=== PATIENT | female | born 1940 | race Caucasian/White ===

== ENCOUNTER → 2016-08-11 | Outpatient (CLI) | payer MEDICARE | END | disposition home or self-care (01) | LOC: PCVCIMAG 11:34 | PROVIDERS: ATTEND Internal Medicine Cardiovascular Disease | DX: R07.9 Chest pain, unspecified (principal); E11.9 Type 2 diabetes mellitus without complications; I10 Essential (primary) hypertension; I07.1 Rheumatic tricuspid insufficiency | CPT/HCPCS: 93306 ==

== ENCOUNTER → 2016-08-12 | Outpatient (CLI) | payer MEDICARE | END | disposition home or self-care (01) | LOC: PCVCCLINIC 15:20 | PROVIDERS: ATTEND Internal Medicine Cardiovascular Disease | DX: E11.9 Type 2 diabetes mellitus without complications (principal); I10 Essential (primary) hypertension; E78.00 Pure hypercholesterolemia, unspecified; R06.09 Other forms of dyspnea; R07.9 Chest pain, unspecified | CPT/HCPCS: G0463 ==

== ENCOUNTER → 2016-09-15 | Outpatient (CLI) | payer MEDICARE | END | disposition home or self-care (01) | LOC: PCVCCLINIC 11:46 | PROVIDERS: ATTEND Internal Medicine Cardiovascular Disease | DX: I10 Essential (primary) hypertension (principal); E78.00 Pure hypercholesterolemia, unspecified; E11.9 Type 2 diabetes mellitus without complications | CPT/HCPCS: 93005; G0463 ==

== ENCOUNTER → 2018-10-21 | Outpatient (CLI) | payer MEDICARE, OTHER ==
--- NOTE | 2018-10-21 14:28 | PCVCIMAG ---
APPROVED REPORT Study performed: 10/21/2018 13:27:41 EXAM: Comprehensive 2D, Doppler, and color-flow Echocardiogram Patient Location: Echo lab Room #: 2Status: routine BSA: 1.69 HR: 66 bpmBP: 118/54 mmHg Rhythm: NSR Other Information Study Quality: Good Risk Factors: Cardiac Risk Factors: HTN, Hyperlipidemia, DM Indications Diabetes CAD Hypertension/HDD 2D Dimensions IVSd: 8.33 (7-11mm)LVOT Diam: 17.77 (18-24mm) LVDd: 46.30 mm PWd: 8.25 (7-11mm)Ascending Ao: 24.80 (22-36mm) LVDs: 25.23 (25-40mm) Left Atrium: 36.88 (27-40mm) Aortic Root: 19.26 mm LV Single Plane 4CH: 61.78 % LV Single Plane 2CH: 64.75 % Biplane EF: 63.2 % Volumes Left Atrial Volume (Systole) Single Plane 4CH: 46.40 mLSingle Plane 2CH: 35.60 mL Biplane LA Volume: 43.00 mLLA ESV Index: 25.00 mL/m2 Aortic Valve AoV Peak Victor M.: 1.83 m/s AO Peak Gr.: 13.36 mmHgLVOT Max P.22 mmHg LVOT Max V: 1.14 m/s PADDY Vmax: 1.55 cm2 Mitral Valve E/A Ratio: 1.6 MV Decel. Time: 215.40 ms MV E Max Victor M.: 0.97 m/s MV A Victor M.: 0.62 m/s TDI E/Lateral E': 10.78E/Medial E': 13.86 Medial E' Victor M.: 0.07 m/s Lateral E' Victor M.: 0.09 m/s Pulmonary Valve PV Peak Victor M.: 0.92 m/sPV Peak Gr.: 3.40 mmHg Pulmonary Vein P Vein S: 0.70 m/sP Vein A: 0.30 m/s P Vein D: 0.68 m/sP Vein A Dur.: 79.6 msec P Vein S/D Ratio: 1.03 Tricuspid Valve TV Vmax: 0.59 m/s Left Ventricle The left ventricle is normal size. There is normal LV segmental wall motion. There is normal left ventricular wall thickness. Left ventricular systolic function is normal. The left ventricular ejection fraction is within the normal range. LVEF is 60-65%. The left ventricular diastolic function is normal. Right Ventricle The right ventricle is normal size. The right ventricular systolic function is normal. Atria The left atrium size is normal. The right atrium size is normal. Aortic Valve Aortic valve is trileaflet. The aortic valve is normal in structure and function. No aortic regurgitation is present. There is no aortic valvular stenosis. Mitral Valve The mitral valve is normal in structure. There is no mitral valve regurgitation noted. No evidence of mitral valve stenosis. Tricuspid Valve The tricuspid valve is normal in structure. There is no tricuspid valve regurgitation noted. Pulmonic Valve The pulmonary valve is normal in structure. There is no pulmonic valvular regurgitation. Great Vessels The aortic root is normal in size. The ascending aorta is normal in size. Aortic arch is normal in caliber. IVC is normal in size and collapses >50% with inspiration. Pericardium There is no pericardial effusion. There is no pleural effusion. <Conclusion> The left ventricle is normal size. There is normal left ventricular wall thickness. Left ventricular systolic function is normal. The left ventricular diastolic function is normal. The right ventricle is normal size. The left atrium size is normal. The aortic valve is normal in structure and function. The mitral valve is normal in structure. There is no tricuspid valve regurgitation noted.
== END | disposition home or self-care (01) ==
LOC: PCVCIMAG 13:18
PROVIDERS: ATTEND Internal Medicine Cardiovascular Disease
DX: I25.10 Atherosclerotic heart disease of native coronary artery without angina pectoris (principal); I10 Essential (primary) hypertension; E11.9 Type 2 diabetes mellitus without complications
CPT/HCPCS: 93306